=== PATIENT | male | born 1960 | race Caucasian/White ===

== ENCOUNTER → 2019-08-03 | Outpatient (CLI) | payer MEDICARE ==
[2019-08-03 12:29] LABS: HCT 49.5 % (39.0-53.0); MCH 28.9 pg (25.0-35.0); MCHC 32.3 g/dL (31.0-37.0); MCV 89.6 fL (80.0-100.0); Mean Platelet Volume 9.4; Platelet Count 192 k/uL (150-450); RBC 5.52 m/uL (4.30-5.90); RDW 15.3 % (11.5-15.5); WBC 7.8 k/uL (3.8-10.6)
[2019-08-03 17:41] LABS: African American GFR (CKD) 77.3 (60.0-200.0); Anion Gap 7.5 mmol/L (4.00-12.00); BUN/Creat Ratio 11.67 Ratio (12.00-20.00); Calcium 9.4 mg/dL (8.7-10.3); Carbon Dioxide 23.5 mmol/L (21.6-31.8); Chol/HDL Ratio 2.9; LDL Cholesterol,Calculated 57.4 mg/dL (0.0-131.0); Potassium 4.8 mmol/L (3.5-5.5); VLDL Calculation 22.6 mg/dL (5.00-40.00)
== END | disposition home or self-care (01) ==
LOC: LABWHC1 10:19
PROVIDERS: ATTEND Physician Assistant
DX: I10 Essential (primary) hypertension (principal); R06.02 Shortness of breath; E78.5 Hyperlipidemia, unspecified; R00.2 Palpitations
CPT/HCPCS: 36415; 80048; 80061; 84443; 85027

== ENCOUNTER → 2024-01-21 | Outpatient (CLI) | payer MEDICARE ==
--- NOTE | 2024-01-21 14:53 | CTL ---
EXAMINATION TYPE: CT Low Dose Lung DATE OF EXAM ORDERED: 01/21/2024 HISTORY: Smoker with 26 pack year history.. Lung cancer screening CT DLP: [address] CTDI: 2.26 mGy Automated exposure control for dose reduction was used. COMPARISON: PET/CT on 09/30/2015. TECHNIQUE: Low dose computed tomography scan was performed through the chest at 1 mm thick sections a nd reconstructed images in multiple planes at 1 mm and [address] DIAGNOSTIC QUALITY: Satisfactory FINDINGS: LUNG NODULES: Irregular parenchymal opacity seen in the right lung apex measuring 3.2 x 2.6 cm in diameter. This ap peared to be in the area of previous malignancy and may relate to prior treatment changes. Residual m alignancy would be difficult to exclude. No recent priors are available for comparison. There is a 5. 5 mm nodule in the left upper lobe on series 8 image 19 which was not seen on the previous examinatio n. LUNGS: COPD: Severity: There is mild upper lobe predominant to moderate upper lobe predominant centrilobular emphysema. Fibrosis: Severity: None Lymph nodes: No adenopathy identified. Other findings: RIGHT PLEURAL SPACE: Effusion: None Calcification: None Thickening: None Pneumothorax: None LEFT PLEURAL SPACE: Effusion: None Calcification: None Thickening: None Pneumothorax: None HEART: Heart Size: Normal Coronary Calcification: None Pericardial Effusion: None OTHER FINDINGS: Upper abdomen: There is a small sliding hiatal hernia. Bony thorax: None Supraclavicular region: None Other: None IMPRESSION: 1. Irregular parenchymal abnormality within the right upper lobe is in the area for was previously no laila to be malignancy on the prior PET/CT scan of 09/30/2015. This could relate to prior treatment leydi nges, however residual disease would be difficult to exclude. This would be best evaluated by PET/CT. 2. New left upper lobe pulmonary nodule. 3. Emphysema. CT LUNG RAD AND CT CHEST RECOMMENDATION: Lung-Rad 4B or 4X Very Suspicious: Follow-up Chest CT with o r without contrast or PET/CT and/or tissue sampling. PET/CT may be used when there is a > 8 mm solid component.
== END | disposition home or self-care (01) ==
LOC: RADCTMAIN 14:08
PROVIDERS: ATTEND Family Medicine
DX: Z12.2 Encounter for screening for malignant neoplasm of respiratory organs (principal); F17.210 Nicotine dependence, cigarettes, uncomplicated; R91.1 Solitary pulmonary nodule; J43.2 Centrilobular emphysema
CPT/HCPCS: 71271

== ENCOUNTER → 2024-03-11 | Outpatient (CLI) | payer MEDICARE ==
--- NOTE | 2024-03-12 15:43 | PE ---
EXAMINATION TYPE: PET CT fusion skull to thigh DATE OF EXAM: 03/11/2024 CLINICAL INDICATION:Male, 63 years old with history of R91.8 OTHER NONSPECIFIC ABNORMAL FINDING OF JEFFERY NG F; TECHNIQUE: Following the intravenous administration of 10.4 mCi of F-18 FDG, whole body images are performed from the skull base to the midthigh. Images are reviewed on the computer in the coronal, a xial, and sagittal planes. Reconstructed rotating images are created on independent workstation and reviewed on the computer. A non-contrast CT is performed in conjunction with the PET scan. Glucose level 88 mg/dL CT DLP: 748.6 mGycm, Automated exposure control for dose reduction was used. COMPARISON: CT 01/21/2024, PET/CT 09/30/2015., FINDINGS: Mediastinal SUV mean is 2.0. Hepatic parenchyma SUV mean is 2.8. SKULL BASE AND NECK: No suspicious radiotracer activity. CHEST, MEDIASTINUM, AND HILAR REGION: No suspicious radiotracer activity. Right upper lung consolidation with irregular parenchymal distortion max SUV is 2.4 measuring 28 x 23 mm. The no focal uptake identified within this lesion. ABDOMEN AND PELVIS: No suspicious radiotracer activity. MUSCULOSKELETAL STRUCTURES: No suspicious radiotracer activity. OTHER CT: History of perirenal probable cyst. Cholelithiasis. Prostatomegaly. Fat-containing right in guinal hernia. Right iliac stent is present. Hypertrophy changes of the right adrenal gland. Hypertro phy changes of the left adrenal gland. Mild emphysema changes. IMPRESSION: Right upper lung scarring/pleural abnormality with mildly elevated uptake which is somewhat diffuse t hroughout this area. No focal uptake suggest malignancy at this time. Surveillance imaging with CT re commended in 3-6 months.
== END | disposition home or self-care (01) ==
LOC: RADPETMAIN 13:33
PROVIDERS: ATTEND Family Medicine
DX: R91.8 Other nonspecific abnormal finding of lung field (principal); J98.4 Other disorders of lung
CPT/HCPCS: 78815; A9552

== ENCOUNTER → 2024-09-17 | Outpatient (CLI) | payer MEDICARE ==
--- NOTE | 2024-09-17 22:47 | CT ---
EXAMINATION TYPE: CT chest w con DATE OF EXAM: 09/17/2024 COMPARISON: 01/21/2024 HISTORY: Abnormal findings of Right upper lung on prior exam CT DLP: 446 mGycm, Automated exposure control for dose reduction was used. CONTRAST: Performed injected with 100 ml mL of Isovue 300. TECHNIQUE: Axial images were obtained at 5 mm thick sections. Reconstructed images are reviewed on [employer]book[employer] ([employer]) computer in the coronal plane. FINDINGS: Portion of the thyroid visualized is normal. There is a spiculated area within the right apex measuring 3.2 x 4.0 cm. Previous measurements 2.6 x 3.2 cm. 0.5 cm peripheral left upper lung field nodule is stable. There is a small loculated effusion along the left lateral lung base. No enlarged mediastinal or hilar adenopathy is evident. Scattered small lymph nodes within the medi astinum. The ascending aorta diameter at the level of the main pulmonary artery is 3.9 cm. The main pulmonary artery diameter at the bifurcation is 2.[address] sections are obtained through the upper abdomen. Abdomen is essentially unremarkable. IMPRESSION: 1. Enlarging spiculated mass right apex. [facility], Workstation: [id number], 09/17/2024 10:45 PM
== END | disposition home or self-care (01) ==
LOC: RADCTMAIN 16:06
PROVIDERS: ATTEND Family Medicine
CPT/HCPCS: 71260